=== PATIENT | male | born 2000 | race Caucasian/White ===

== ENCOUNTER 2020-07-05 11:56 | Emergency (ER) | payer OTHER, SELFPAY ==
[2020-07-05 12:25] VITALS: BP 134/59; PULSE 67; RESP 16; TEMP 36.9; O2SAT 99
--- NOTE | 2020-07-05 12:30 | ED.GENADULT ---
HPI - General Adult General Chief complaint: Eye Problems Stated complaint: eye pain Time Seen by Provider: 07/05/20 12:30 Source: patient and RN notes reviewed Mode of arrival: ambulatory Limitations: no limitations History of Present Illness HPI narrative: 20-year-old male presents with complains of light sensitivity, redness, and sensation of foreign body in left eye for 2 days. Ibuprofen 600mg, last this morning 10:30 without relief. Ge says he changed out his contacts on 07/03/20 and several hours later started having irritation to LT eye. Symptoms worsening over the last 24 hours with increase redness and irritation. Teary eyed. Exacerbating factor rubbing eye. Some relieving factors is closing eyes. Denies blurred vision, double vision, , or pain of eye with movement. Denies fever or chills. The patient reports he have not been diagnosed with COVID-19. The patient reports he is not waiting for the results of a COVID-19 lab test. The patient reports he do not have fever, chills, weakness, or fatigue. The patient reports he do not have a new or worsening cough or shortness of breath. Denies chest pain. The patient reports he do not have any rhinorrhea, congestion, sore throat, loss of taste, nausea, vomiting, abdominal pain, and diarrhea. Tolerating po intake well. Denies recent traveling. Denies concerns for COVID-19 or exposures been home with limited outdoor exposure except for essential household needs and return home. At this time, patient is not suspected of having COVID-19. Some parts of this dictation were generated by voice recognition software and may contain typographical and/or grammatical inaccuracies. Related Data Home Medications Medication Instructions Recorded Confirmed Xeazar 07/05/20 fluoxetine 07/05/20 Allergies Allergy/AdvReac Type Severity Reaction Status Date / Time No Known Allergies Allergy Verified 07/05/20 12:24 Review of Systems Review of Systems: Narrative: CONSTITUTIONAL: Denies fever, chills, sweats. EYES: Denies visual changes. Complains of LT eye redness and foreign body sensation, light sensitivity, teary eyed. ENT: Denies rhinorrhea, congestion, sore throat, otalgia. CARDIOVASCULAR: Denies chest pain, palpitations, edema. RESPIRATORY: Denies dyspnea, wheezing, cough. GASTROINTESTINAL: Denies abdominal pain, nausea, vomiting, diarrhea. GENITOURINARY: Denies dysuria, hematuria, abnormal discharge. SKIN: Denies rash or itching. MUSCULOSKELETAL: Denies acute back pain, joint pain, or myalgia. NEUROLOGIC: Denies numbness or focal weakness. PSYCHIATRIC: Denies anxiety or depression. All systems reviewed & are unremarkable except as noted in HPI and below. PMFSH Past Medical History Medical History (Updated 07/06/20 @ 00:00 by Mel Jefferson) Anxiety Depression Ulcerative colitis Surgical History Surgical History (Updated 07/05/20 @ 13:08 by CAMI Blackwood) No significant past surgical history Family History Family History (Updated 07/05/20 @ 13:09 by CAMI Blackwood) Father Alive and well Mother Lupus Grandparent Diabetes mellitus Social History Social History (Updated 07/05/20 @ 13:10 by CAMI Blackwood) Smoking status: Former smoker Smokeless tobacco user: chewing tobacco Gender identity (if verbalized by the patient): Transgender Female Comments At time of signature, I have reviewed and agree with nursing past medical, surgical, social, and family history. Please see nursing chart for further information. There is no relevant family history pertinent to the presenting complaint. Exam Narrative: Exam Narrative: GENERAL: This is a well-nourished, well-developed patient, in no apparent distress. HEAD: normocephalic, atraumatic. EYES: PERRL. Sclera clear/white to RT eye only. LT eye sclera fanta and clear with clear watery (teary) drainage, no swelling, no tenderness on palpation or erythema. Vision
== END 2020-07-05 13:09 | disposition home or self-care (01) ==
PROVIDERS: Emergency Provider Nurse Practitioner Family
DX: S05.02XA Injury of conjunctiva and corneal abrasion without foreign body, left eye, initial encounter (principal); X58.XXXA Exposure to other specified factors, initial encounter; F41.9 Anxiety disorder, unspecified; F32.9 Major depressive disorder, single episode, unspecified
CPT/HCPCS: 99213; A9270; G0463

== ENCOUNTER 2022-05-23 13:23 | Emergency (ER) | payer OTHER, SELFPAY ==
--- NOTE | 2022-05-23 13:28 | ED.SKABFB ---
HPI - Skin/Abscess/Foreign Bdy General Chief complaint: Skin/Abscess/Foreign Body Stated complaint: Lac on left ankle Time Seen by Provider: 05/23/22 13:29 Source: patient and RN notes reviewed History of Present Illness HPI narrative: Patient is a 22-year-old male transitioning to female. Who presents to the urgent care with complaints of a left leg laceration. Patient states that happened just prior to arrival at the [employer] where he was shopping for a [employer] glass decor. Patient is up-to-date on the tetanus shot. No other acute complaints or injuries. No acute distress noted. Patient aware of the plan of care. Some parts of this dictation were generated by voice recognition software and may contain typographical and/or grammatical inaccuracies. Related Data Home Medications Medication Instructions Recorded Confirmed dextroamphetamine-amphetamine ER 20 mg PO DAILY 05/23/22 05/23/22 20 mg 24hr capsule,extend release escitalopram oxalate 20 mg tablet 20 mg PO DAILY 05/23/22 05/23/22 estradiol 2 mg tablet 2 mg PO 05/23/22 omeprazole 20 mg capsule,delayed cap 05/23/22 release solriamfetol 150 mg tablet (Sunosi) tablet 05/23/22 spironolactone 25 mg tablet tablet 05/23/22 ustekinumab 90 mg/mL subcutaneous syr subcut 05/23/22 syringe (Stelara) Allergies Allergy/AdvReac Type Severity Reaction Status Date / Time No Known Allergies Allergy Verified 07/05/20 12:24 Review of Systems Review of Systems: CONSTITUTIONAL: Denies fever, chills, or sweats. EYES: Denies visual changes, redness, or discharge. ENT: Denies rhinorrhea, congestion, sore throat, or otalgia. CARDIOVASCULAR: Denies chest pain, palpitations, or edema. RESPIRATORY: Denies cough or dyspnea. GASTROINTESTINAL: Denies abdominal pain, nausea, vomiting, or diarrhea. GENITOURINARY: Denies dysuria or hematuria. SKIN: Reports of a laceration to the left lower leg MUSCULOSKELETAL: Denies back pain, joint pain, or myalgia. NEUROLOGIC: Denies headache, numbness, or weakness. All other systems reviewed are negative, except as documented in HPI. [facility] Past Medical History Medical History (Updated 05/23/22 @ 13:49 by CAMI Marie) Anxiety Depression Ulcerative colitis Surgical History Surgical History (Updated 07/05/20 @ 13:08 by CAMI Blackwood) No significant past surgical history Family History Family History (Updated 07/05/20 @ 13:09 by CAMI Blackwood) Father Alive and well Mother Lupus Grandparent Diabetes mellitus Social History Social History (Updated 07/05/20 @ 13:10 by CAMI Blackwood) Smoking status: Former smoker Smokeless tobacco user: chewing tobacco Gender identity (if verbalized by the patient): Transgender Female Comments At the time of my signature, I reviewed and agree with the nursing past medical, surgical, social, and family history. There is no relevant family history pertinent to the patient complaint. Exam Narrative: GENERAL: This is a well-nourished, well-developed patient, in no apparent distress. HEAD: normocephalic, atraumatic. EYES: PERRL. Sclera clear/white. Vision is grossly intact. EARS: External ears normal NOSE: External nose normal with no obvious nasal discharge, nares without redness, no rhinorrhea. THROAT: Mucous membranes moist NECK: Neck supple CARDIOVASCULAR: Regular rate and rhythm without murmurs, gallops, or rubs. RESPIRATORY: Clear to auscultation. Breath sounds equal bilaterally. No wheezes, rales, or rhonchi. SKIN: 1 cm in length by 0.25 cm skin abrasion to the anterior aspect of the left lower leg over the talus region NEURO: awake, alert, and oriented to person, place and time. There were no obvious focal neurologic abnormalities. EXTREMITIES: No clubbing, cyanosis, or edema. Course Course Level of Care: Express Care Visit Vital Signs Vital signs: Vital Signs Temperature 97.9 F 05/23/22 13:38 Pulse Rate 83 07/
[2022-05-23 13:38] VITALS: BP 122/79; PULSE 83; RESP 16; TEMP 36.6; O2SAT 99
== END 2022-05-23 14:05 | disposition home or self-care (01) ==
PROVIDERS: Emergency Provider Nurse Practitioner Family
DX: S81.802A Unspecified open wound, left lower leg, initial encounter (principal); X58.XXXA Exposure to other specified factors, initial encounter; F41.9 Anxiety disorder, unspecified; F32.A Depression, unspecified; F17.220 Nicotine dependence, chewing tobacco, uncomplicated
CPT/HCPCS: 99212; G0463